=== PATIENT | female | born 1985 | race Caucasian/White ===

== ENCOUNTER 2018-02-21 10:53 | Emergency (ER) | payer OTHER ==
[2018-02-21 12:24] VITALS: BP 115/66
--- NOTE | 2018-02-21 12:54 | UC ---
Headache HPI - HPI Summary HPI Summary: C/O left sided headache x 5 days with some nausea. Not typical migraine. Throbbing pain can be severe. No fevers/ chills. - History Of Current Complaint Chief Complaint: Rossana Stated Complaint: HEADACHE (5 DAYS) Time Seen by Provider: 02/21/18 12:48 Hx Obtained From: Patient Hx Last Menstrual Period: Liletta IUD ?: No Onset/Duration: Gradual Onset - Had sleep disruption last weekend., Lasting Days - 5 Onset Of Symptoms: Gradual Pain Intensity: 2 Timing: Constant Character: Throbbing Location of Headache: Parietal - on the left Allevating Factor(s): Nothing Associated Signs And Symptoms: Positive: Nausea Related History: Similar Episode/DX As: - migraine - Risk Factors SAH Risk Factors: Negative Meningitis Risk Factors: Negative SDH Risk Factors: Negative - Allergies/Home Medications Allergies/Adverse Reactions: Allergies Allergy/AdvReac Type Severity Reaction Status Date / Time No Known Allergies Allergy Verified 02/21/18 12:19 Home Medications: Home Medications HYDROcodone/ACETAMIN 5-325 MG* [[place] 5-325 TAB*] 1 tab PO Q6H PRN 02/21/18 [ History Confirmed 02/21/18] Levonorgestrel (Iud) [Liletta IUD] 18.6 mcg IU ONCE 02/21/18 [History Confirmed 02/21/18] Naproxen Sodium [Aleve] 440 mg PO Q12H PRN 02/21/18 [History Confirmed 02/21/18] PMH/Surg Hx/FS Hx/Imm Hx Neurological History: Migraine Other History Of: Negative For: HIV, Hepatitis B, Hepatitis C, Anticoagulant Therapy - Surgical History Surgical History: Yes Surgery Procedure, Year, and Place: Appendectomy, 2000, [facility] - Family History Known Family History: Negative: Cardiac Disease, Hypertension, Diabetes - Social History Occupation: Employed Full-time Lives: With Family Alcohol Use: Occasionally Substance Use Type: Marijuana Substance Use Comment - Amount & Last Used: Occasionally Smoking Status (MU): Heavy Every Day Tobacco Smoker Type: Cigarettes Amount Used/How Often: 1/2 PPD Length of Time of Smoking/Using Tobacco: Since Age 20 Household Exposure Type: Cigarettes - Immunization History Most Recent Influenza Vaccination: NEVER Most Recent Tetanus Shot: UTD Review of Systems Neurological: Headache Is Patient Immunocompromised?: No All Other Systems Reviewed And Are Negative: Yes Physical Exam Triage Information Reviewed: Yes Appearance: Well-Appearing, Well-Nourished, Pain Distress - mild Vital Signs: Initial Vital Signs Temp 98.9 F 02/21/18 12:16 Pulse 70 02/21/18 12:16 Resp 16 02/21/18 12:16 BP 115/66 02/21/18 12:16 Pulse Ox 100 02/21/18 12:16 Vital Signs Reviewed: Yes Eyes: Positive: Conjunctiva Clear ENT: Positive: Pharynx normal, Nasal congestion - with allergic changes., TMs normal Neck exam: Normal Respiratory: Positive: Lungs clear Cardiovascular Exam: Normal Musculoskeletal Exam: Normal Neurological Exam: Normal Psychological Exam: Normal Skin Exam: Normal Headache Course/Dx - Differential Dx/Diagnosis Differential Diagnosis/HQI/PQRI: Migraine, Sinus Headache, Tension Headache Provider Diagnoses: Migraine with status migrainosis. Allergic rhinitis Discharge - Sign-Out/Discharge Documenting (check all that apply): Discharge/Admit/Transfer - Discharge Plan Condition: Stable Disposition: HOME Prescriptions: predniSONE TAB* [Deltasone TAB*] 20 mg PO DAILY #18 tab SUMAtriptan succinate [Sumatriptan Succinate] 100 mg PO DAILY PRN #9 tablet MDD 2 tablets PRN Reason: Migraine Headache Patient Education Materials: Migraine Headache (ED), Sumatriptan (By mouth), Prednisone (By mouth) Referrals: Adeline Escudero NP [Primary Care Provider] - Additional Instructions: Smoking Cessation Tricks. 1. Cut down by 1 cigarette per day every 2-3 days. Write the number of smokes for that day on the calendar. 2. Identify triggers to smoking: after meals, on the phone, in the car, with coffee, on breaks at work, etc. 3. Formulate a plan with a behavior to replace the smoking. Fireballs in the car , doodle pad on the phone, flavored creamer for the coffee, go for a walk after a meal or on break at work. 4. For stress smokes do deep breathing relaxation. Breath deep in through the nose hold the breath in for a few seconds then breath out slowly through the mouth. NEILMED SINUS RINSE: CHECK OUT AT [email or web address] Saline nasal wash helps with mucous, allergies and congestion. It can be used up to twice a day or only as needed. Use lukewarm tap water. It does not have to be sterilized or distilled water. Do 1/3 on each side and snort out of both nostrils. Repeat the process with 1/6 of the bottle on each side with snorting in between to finish the solution in the bottle Vitamin D3 5000iu 3 capsules once a week and magnesium 400 or 500mg a day can help to prevent migraines as well. - Billing Disposition and Condition Condition: STABLE Disposition: HOME
[2018-02-21] MEDS ORDERED: methylPREDNISolone 125 MG* 2 ML VIAL IM ONE (13:01)
[2018-02-21] MEDS ORDERED: SUMAtriptan SQ* 6 MG/0.5 ML VIAL SUBCUT ONE (13:01)
== END 2018-02-21 13:42 | disposition home or self-care (01) ==
LOC: UCCORT 10:53
DX: G43.901 Migraine, unspecified, not intractable, with status migrainosus (principal); J30.9 Allergic rhinitis, unspecified; F17.210 Nicotine dependence, cigarettes, uncomplicated
CPT/HCPCS: 96372; 99212; G0463; J2930; J3030

== ENCOUNTER 2018-09-28 17:41 | Emergency (ER) | payer OTHER ==
[2018-09-28] MEDS ORDERED: Diazepam TAB(*) 5 MG PO ONE (18:28)
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
[2018-09-28 19:18] VITALS: BP 122/78
== END 2018-09-28 19:17 | disposition home or self-care (01) ==
LOC: ED 17:41
DX: M54.2 Cervicalgia (principal); R22.0 Localized swelling, mass and lump, head
CPT/HCPCS: 99282

== ENCOUNTER 2019-07-23 07:07 | Emergency (ER) | payer OTHER ==
[2019-07-23 07:27] VITALS: BP 120/60
--- NOTE | 2019-07-23 07:48 | UC ---
Throat Pain/Nasal Jonathan HPI - HPI Summary HPI Summary: 33 yo female presents with complaint of sore throat for the past two days. + smoker, denies fever, has been chilled at times. No swollen glands nor cough. - History of Current Complaint Chief Complaint: UCGeneralIllness Stated Complaint: SORE THROAT CHILLS Time Seen by Provider: 07/23/19 07:28 Hx Obtained From: Patient Hx Last Menstrual Period: Liletta IUD Onset/Duration: Sudden Onset, Lasting Days - 2 Pain Intensity: 3 Cough: None Associated Signs & Symptoms: Positive: Negative - Epiglottits Risk Factors Epiglottis Risk Factors: Negative - Allergies/Home Medications Allergies/Adverse Reactions: Allergies Allergy/AdvReac Type Severity Reaction Status Date / Time No Known Allergies Allergy Verified 07/23/19 07:26 Home Medications: Home Medications NK [No Home Medications Reported] 07/23/19 [History Confirmed 07/23/19] PMH/Surg Hx/FS Hx/Imm Hx Previously Healthy: Yes Other History Of: Negative For: HIV, Hepatitis B, Hepatitis C, Anticoagulant Therapy - Surgical History Surgical History: Yes Surgery Procedure, Year, and Place: Appendectomy, 2000, [facility]. tubes tied - Family History Known Family History: Negative: Cardiac Disease, Hypertension, Diabetes - Social History Alcohol Use: Weekly Substance Use Type: None Substance Use Comment - Amount & Last Used: Occasionally Smoking Status (MU): Heavy Every Day Tobacco Smoker Type: Cigarettes Amount Used/How Often: 1/2 PPD Length of Time of Smoking/Using Tobacco: Since Age 20 Household Exposure Type: Cigarettes - Immunization History Most Recent Influenza Vaccination: NEVER Most Recent Tetanus Shot: UTD Review of Systems All Other Systems Reviewed And Are Negative: Yes Constitutional: Positive: Negative Skin: Positive: Negative Eyes: Positive: Negative ENT: Positive: Sore Throat Respiratory: Positive: Negative Cardiovascular: Positive: Negative Gastrointestinal: Positive: Negative Genitourinary: Positive: Negative Motor: Positive: Negative Neurovascular: Positive: Negative Musculoskeletal: Positive: Negative Neurological: Positive: Negative Psychological: Positive: Negative Is Patient Immunocompromised?: No Physical Exam Triage Information Reviewed: Yes Appearance: Well-Appearing, No Pain Distress Vital Signs: Initial Vital Signs Temp 97.8 F 07/23/19 07:23 Pulse 68 07/23/19 07:23 Resp 18 07/23/19 07:23 BP 120/60 07/23/19 07:23 Pulse Ox 100 09/28/19 07:23 Vital Signs Reviewed: Yes Eyes: Positive: Conjunctiva Clear ENT Exam: Normal Neck: Positive: Supple, Nontender, No Lymphadenopathy Respiratory: Positive: Chest non-tender, Lungs clear, Normal breath sounds Cardiovascular: Positive: RRR, No Murmur, Pulses Normal Abdomen Description: Positive: Nontender, Soft Musculoskeletal Exam: Normal Neurological Exam: Normal Psychological Exam: Normal Skin Exam: Normal Throat Pain/Nasal Course/Dx - Course Course Of Treatment: Rapid strep negative, low likelyhood of strep based on [facility] criteria. - Differential Dx/Diagnosis Differential Diagnosis/HQI/PQRI: URI Provider Diagnosis: Pharyngitis Discharge ED - Sign-Out/Discharge Documenting (check all that apply): Patient Departure All imaging exams completed and their final reports reviewed: No Studies - Discharge Plan Condition: Stable Disposition: HOME Patient Education Materials: Pharyngitis (ED) Referrals: Adeline Escudero [employer] [Primary Care Provider] - Additional Instructions: Ibuprofen and Cepacol lozenges as needed for sore throat. Follow-up if symptoms worsen or if fever >100.4F develops. - Billing Disposition and Condition Condition: STABLE Disposition: Home
== END 2019-07-23 08:05 | disposition home or self-care (01) ==
LOC: UCCORT 07:07
DX: J02.9 Acute pharyngitis, unspecified (principal); F17.210 Nicotine dependence, cigarettes, uncomplicated
CPT/HCPCS: 87070; 87651; 99211; G0463